=== PATIENT | male | born 1955 | race Caucasian/White ===

== ENCOUNTER 2017-01-23 17:05 | Emergency (ER) | payer SELFPAY ==
[~2017-01-23] VITALS: Ht 177.8 cm; Wt 86.9 kg
[2017-01-23 17:53] LABS: EOSINOPHIL (%) 0 % (0-5); HEMATOCRIT 42.4 % (38.0-50.0); IMMATURE GRANULOCYTE (%) 0.6 % (0.0-0.7); IMMATURE GRANULOCYTE COUNT 0.1 K/uL; INSTRUMENT ABS NEUTROPHIL CT 13.3 K/uL; MCH 31.1 PG (29.0-34.0); MCHC 33.3 G/DL (30.0-36.0); MCV 93.4 FL (86-99); MEAN PLAT.VOLUME 9.3 uM^3 (9.0-12.4); MONOCYTE (%) 5.9 % (3-12); MONOCYTE COUNT 0.9 K/uL (0-0.8); NEUTROPHIL (%) 86.4 % (45-76); NEUTROPHIL COUNT 13.3 K/uL (1.8-6.4); PLATELET COUNT 214 K/uL (156-360); RBC DIS.WIDTH-CV 12.9 % (11.8-14.6); RED BLOOD COUNT 4.54 M/uL (4.00-5.50); WHITE BLOOD COUNT 15.4 K/uL (4.1-10.2)
[2017-01-23 18:05] LABS: CHLORIDE 101 mEq/L (99-109); POTASSIUM 3.8 mEq/L (3.7-5.4); SODIUM 135 mEq/L (136-147)
[2017-01-23 18:06] LABS: GLUCOSE 111 mg/dL (70-99)
[2017-01-23 18:08] LABS: ANION GAP 13 MEQ/L (2-14)
[2017-01-23 18:10] LABS: GFR ESTIMATE (CALCULATED) > 59 mL/min/
[2017-01-23 18:11] LABS: UREA NITROGEN (BUN) 14 mg/dL (9-23)
[2017-01-24 00:10] LABS: ADD MIUA? NO; BILIRUBIN NEGATIVE; BLOOD NEGATIVE; COLOR YELLOW ((YELLOW)); GLUCOSE (STRIP) NEGATIVE; KETONES 20; LEUKOCYTES NEGATIVE; NITRITE NEGATIVE; PROTEIN (STRIP) NEGATIVE; UCUL ADDED? NO; UROBILINOGEN 0.2 MG/DL (0.2-1.0)
[2017-01-24 00:20] LABS: SPECIFIC GRAVITY 1.062 (1.000-1.030)
[2017-01-24 02:52] VITALS: BP 128/81
== END 2017-01-24 02:54 | disposition short-term general hospital (02) ==
LOC: EME 17:05
DX: K12.2 Cellulitis and abscess of mouth (principal); K04.7 Periapical abscess without sinus; R07.0 Pain in throat
CPT/HCPCS: 70491; 80048; 81003; 83605; 85025; 87040; 99281; 99285; J1100; J1885; J2543; J3370; J7030